=== PATIENT | male | born 1990 | race Caucasian/White ===

== ENCOUNTER 2025-03-05 06:57 | Outpatient (CLI) | payer OTHER, SELFPAY ==
[2025-03-05 08:17] LABS: Hematocrit 45.7 % (42.0-52.0); Hemoglobin 15.2 g/dL (14.0-18.0)
[2025-03-05 09:23] LABS: Prostate Specific Antigen 0.6 ng/mL (< OR = 4.0)
[2025-03-06 08:33] LABS: FSH 5.1 mIU/mL (1.4-12.8); LH. 1.9 mIU/mL (1.5-9.3); Prolactin. 9.3 ng/mL (2.0-18.0)
[2025-03-10 09:57] LABS: Testosterone Free 47 pg/mL (35.0-155.0); Testosterone Total 273 ng/dL (250-1100)
== END 2025-03-05 06:58 | disposition home or self-care (01) ==
PROVIDERS: PCP Nurse Practitioner; Visit Provider Nurse Practitioner Family
DX: R79.89 Other specified abnormal findings of blood chemistry (principal)
CPT/HCPCS: 36415; 82670; 83001; 83002; 84146; 84153; 84402; 84403; 85014; 85018